=== PATIENT | male | born 1935 | race Caucasian/White ===

== ENCOUNTER → 2016-11-04 | Outpatient (CLI) | payer MEDICARE, BC ==
[~2016-11-04] MED LIST: ACET-1757 PO; CHOL10002 PO; CHOLESTEROL MED; CYAN1TAB18 PO; GLUC1CAP48 PO; HTN MED PO; LISI10TA2 PO; METO50TA82 PO; OMNIPAQUE 350 MG/ML, 100ML BOTTLE ONE; RAMI10CA PO; WARF3TAB PO; WARF3TAB7 PO; [UNRECOGNIZED DRUG - CODE] PO; vitamin b12 PO
== END | disposition home or self-care (01) ==
LOC: RAD 14:25
PROVIDERS: ATTEND Family Medicine
DX: K43.9 Ventral hernia without obstruction or gangrene (principal); K44.9 Diaphragmatic hernia without obstruction or gangrene; I71.4 Abdominal aortic aneurysm, without rupture
CPT/HCPCS: 74177; Q9967